=== PATIENT | female | born 1995 | race Caucasian/White ===

== ENCOUNTER 2019-12-14 02:25 | Emergency (ER) | payer OTHER ==
[2019-12-14 03:18] VITALS: BMI 25.4
[2019-12-14] MEDS ORDERED: SODIUM CHLORIDE 1,000 ML IV STA (04:02)
[2019-12-14] MEDS ORDERED: ACETAMINOPHEN 1000 MG/100 ML VIAL (NON FORMULARY) IVPB ONE (04:02)
[2019-12-14] MEDS ORDERED: ONDANSETRON 4 MG/2 ML VIAL IVPUSH ONE (04:02)
--- NOTE | 2019-12-14 04:02 | PDOC ---
*Physical Exam - Vital Signs Last Vital Signs Temp Pulse Resp BP Pulse Ox 98.2 F 100 H 19 136/50 L 97 12/14/19 02:25 12/14/19 02:25 12/14/19 02:25 12/14/19 02:25 12/14/19 02:25 ED Treatment Course - LABORATORY CBC & Chemistry Diagram: 12/14/19 05:00 12/14/19 05:00 Medical Decision Making - Medical Decision Making 12/14/19 04:02 Patient seen by the advanced practice provider under my direct supervision. Ancillary testing reviewed as necessary. I agree with plan as outlined by the advanced practice provider. Discharge - Discharge Information Problems reviewed: Yes Clinical Impression/Diagnosis: Abdominal pain Qualifiers: Abdominal location: left lower quadrant Qualified Code(s): R10.32 - Left lower quadrant pain Nausea and vomiting Qualifiers: Vomiting type: unspecified Vomiting Intractability: non-intractable Qualified Code(s): R11.2 - Nausea with vomiting, unspecified Condition: Improved Disposition: HOME - Additional Discharge Information Prescriptions: Famotidine [Pepcid -] 20 mg PO BID 4 Days #8 tablet Ketorolac Tromethamine [Toradol] 10 mg PO Q8H PRN #20 tablet PRN Reason: pain Ondansetron [Zofran *Odt*] 4 mg SL Q8H PRN #12 od.tablet PRN Reason: nausea - Follow up/Referral Referrals: Mich Turner MD [Staff Physician] - - Patient Discharge Instructions Patient Printed Discharge Instructions: DI for Ovarian Cyst Additional Instructions: Your blood work is normal. Your CAT scan is normal as well and only shows some trace fluid in the pelvis which could be indication of ruptured ovarian cyst which could cause pain. Take prescribed medication as prescribed for pain. 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 Follow-up with referred GI doctor Dr. Turner if abdominal pain persist for more than 2 days - Post Discharge Activity
--- NOTE | 2019-12-14 04:02 | PDOC ---
History of Present Illness - General Chief Complaint: Pain Stated Complaint: STOMACH PAIN Time Seen by Provider: 12/14/19 03:50 History Source: Patient, Old Records Exam Limitations: No Limitations - History of Present Illness Travel History: No Initial Comments: 12/14/19 04:29 HISTORY OF PRESENT ILLNESS: 24-year-old woman who presents emergency department for evaluation of abdominal pain starting today. Patient reports the pain started periumbilical it is now radiated to the left lower quadrant. Patient reports inability to tolerate p.o.'s she denies vaginal bleeding, vaginal discharge, hematuria, dysuria. She denies diarrhea or rectal bleeding. Her last bowel movement was 2 days ago. Patient states her son has been experiencing flulike symptoms for the past 3 to 4 days. No recent travel or sick contacts. PAST MEDICAL HISTORY: Denies past medical history SURGICAL HISTORY: Denies ALLERGIES: No known drug allergies REVIEW OF SYSTEMS General/Constitutional: Denies fever or chills. Denies weakness, weight change. HEENT: Denies change in vision. Denies ear pain or discharge. Denies sore throat. Cardiovascular: Denies chest pain or shortness of breath. Respiratory: Denies cough, wheezing, or hemoptysis. Gastrointestinal: See HPI Genitourinary: Denies dysuria, frequency, or change in urination. Musculoskeletal: Denies joint or muscle swelling or pain. Denies neck or back pain. Skin and breasts: Denies rash or easy bruising. Neurologic: Denies headache, vertigo, loss of consciousness, or loss of sensation. Psychiatric: Denies depression or anxiety. Endocrine: Denies increased thirst. Denies abnormal weight change. Hematologic/Lymphatic: Denies anemia, easy bleeding, or history of blood clots. Allergic/Immunologic: Denies hives or skin allergy. Denies latex allergy. PHYSICAL EXAM General Appearance: Well-appearing, appropriately dressed. No apparent distress , no intoxication. Respiratory/Chest: Lungs CTAB. No shortness of breath, chest tenderness, respiratory distress, accessory muscle use. No crackles, rales, rhonchi, stridor , wheezing, dullness Cardiovascular: RRR. S1, S2. No JVD, murmur, bradycardia, tachycardia. Vascular Pulses: Dorsalis-Pedis (R): 2+, Dorsalis-Pedis (L): 2+ Gastrointestinal/Abdominal: Normal bowel sounds. Abdomen soft, non-distended. Left lower quadrant tenderness with guarding. No rebound tenderness. No organomegaly, pulsatile mass, hernia, hepatomegaly, splenomegaly. Negative psoas, obturator or Rovsing signs. Lymphatic: No adenopathy, tenderness. Musculoskeletal/Extremities: Normal inspection. FROM of all extremities, normal capillary refill. Pelvis Stable. No CVA tenderness. No tenderness to extremities, pedal edema, swelling, erythema or deformity. Past History - Past Medical History Allergies/Adverse Reactions: Allergies Allergy/AdvReac Type Severity Reaction Status Date / Time No Known Allergies Allergy Verified 12/14/19 03:17 Home Medications: Ambulatory Orders Vit No.124/Iron/Folic [ Vitamin Tablet] 1 each PO DAILY Vitamins (Sjr) - 1 tab PO DAILY #90 tablet 08/09/16 Cephalexin [Keflex] 500 mg PO TID #15 capsule 08/12/16 Famotidine [Pepcid -] 20 mg PO BID 4 Days #8 tablet 12/14/19 Ketorolac Tromethamine [Toradol] 10 mg PO Q8H PRN #20 tablet 12/14/19 Ondansetron [Zofran *Odt*] 4 mg SL Q8H PRN #12 od.tablet 12/14/19 Anemia: No Asthma: No Cancer: No Cardiac Disorders: No CVA: No Diabetes: No HTN: No Seizures: No Thyroid Disease: No - Surgical History Abdominal Surgery: No Appendectomy: No Cardiac Surgery: No Cholecystectomy: No - Reproductive History (#): 1 Para: 0 Cervical CA: No Dysfunctional Uterine Bleeding: No Ectopic : No Endometrial CA: No Polycystic Ovaries: No Therapeutic (s) & number: No Tubal Ligation: No - Immunization History Immunization Up to Date: Yes - Psycho Social/Smoking Cessation Hx Smoking Status: No Smoking History: Never smoked Have you smoked in the past 12 months: No Number of Cigarettes Smoked Daily: 0 Hx Alcohol Use: No Drug/Substance Use Hx: No Substance Use Type: None Hx Substance Use Treatment: No *Physical Exam - Vital Signs Last Vital Signs Temp Pulse Resp BP Pulse Ox 98.2 F 100 H 19 136/50 L 97 12/14/19 02:25 12/14/19 02:25 12/14/19 02:25 12/14/19 02:25 12/14/19 02:25 ED Treatment Course - LABORATORY CBC & Chemistry Diagram: 12/14/19 05:00 12/14/19 05:00 Medical Decision Making - Medical Decision Making 12/14/19 04:32 A/P: 24-year-old woman with left lower quadrant abdominal pain starting today Differential diagnosis includes but is not limited to obstruction, perforation, diverticulitis, urinary tract infection, appendicitis, influenza, gastroenteritis Labs including lipase Urinalysis, urine culture, urine Normal saline 1 L IV bolus Zofran [address] of the abdomen and pelvis with IV contrast Reassess 12/14/19 07:05 Patient signed out to REINA Parker for continued evaluation. Discharge - Discharge Information Problems reviewed: Yes Clinical Impression/Diagnosis: Abdominal pain Qualifiers: Abdominal location: left lower quadrant Qualified Code(s): R10.32 - Left lower quadrant pain Nausea and vomiting Qualifiers: Vomiting type: unspecified Vomiting Intractability: non-intractable Qualified Code(s): R11.2 - Nausea with vomiting, unspecified Condition: Improved Disposition: HOME - Additional Discharge Information Prescriptions: Famotidine [Pepcid -] 20 mg PO BID 4 Days #8 tablet Ketorolac Tromethamine [Toradol] 10 mg PO Q8H PRN #20 tablet PRN Reason: pain Ondansetron [Zofran *Odt*] 4 mg SL Q8H PRN #12 od.tablet PRN Reason: nausea - Follow up/Referral Referrals: Mich Turner MD [Staff Physician] - - Patient Discharge Instructions Patient Printed Discharge Instructions: DI for Ovarian Cyst Additional Instructions: Your blood work is normal. Your CAT scan is normal as well and only shows some trace fluid in the pelvis which could be indication of ruptured ovarian cyst which could cause pain. Take prescribed medication as prescribed for pain. 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 Follow-up with referred GI doctor Dr. Turner if abdominal pain persist for more than 2 days - Post Discharge Activity
[2019-12-14] MEDS ORDERED: ONDANSETRON 4 MG/2 ML VIAL ONE (04:45)
[2019-12-14] MEDS ORDERED: ACETAMINOPHEN INJECTION 100 ML IVPB ONE (04:45)
[2019-12-14 05:40] LABS: BASO % 0.5 % (0-2.0); EOS % 1.4 % (0-4.5); HEMATOCRIT 39.2 % (32.4-45.2); HEMOGLOBIN 13.3 GM/dL (10.7-15.3); LYMPH % 21.1 % (8-40); MCH 29.4 pg (25.7-33.7); MEAN CELL VOLUME 86.5 fl (80-96); MEAN PLT VOLUME 8.8 fl (7.5-11.1); MONO % 6.9 % (3.8-10.2); NEUT % 70.1 % (42.8-82.8); PLATELET COUNT 344 K/MM3 (134-434); RBC 4.54 M/mm3 (3.60-5.2); RDW 12.7 % (11.6-15.6); WHITE BLOOD COUNT 14.1 K/mm3 (4.0-10.0)
[2019-12-14 05:57] LABS: ALBUMIN 4.1 g/dl (3.4-5.0); BILIRUBIN,TOTAL 0.5 mg/dL (0.2-1); CALCIUM 9.3 mg/dL (8.5-10.1); CREATININE 0.9 mg/dL (0.55-1.3); POTASSIUM 4.4 mmol/L (3.5-5.1); TOT PROT 7.7 g/dl (6.4-8.2)
[2019-12-14 06:26] LABS: URINE APPEARANCE CLOUDY; URINE BILIRUBIN NEGATIVE (NEGATIVE); URINE COLOR YELLOW; URINE GLUCOSE (UA) NEGATIVE (NEGATIVE); URINE KETONE NEGATIVE (NEGATIVE); URINE LEUK ESTERASE NEGATIVE (NEGATIVE); URINE NITRITE NEGATIVE (NEGATIVE); URINE PROTEIN TRACE (NEGATIVE); URINE UROBILINOGEN 0.2 mg/dL (0.2-1.0)
[2019-12-14] MEDS ORDERED: morphine CARPU-JECT 2 MG/1 ML DISP.SYRIN IVPUSH ONE (06:43)
[2019-12-14] MEDS ORDERED: MORPHINE SULFATE 2 MG/ML VIAL ONE (07:13)
--- NOTE | 2019-12-14 07:47 | PDOC ---
*Physical Exam - Vital Signs Last Vital Signs Temp Pulse Resp BP Pulse Ox 98.1 F 88 19 105/41 L 100 12/14/19 03:50 12/14/19 03:50 12/14/19 03:50 12/14/19 03:50 12/14/19 03:50 - Physical Exam General Appearance: Yes: Nourished, Appropriately Dressed, Mild Distress HEENT: positive: MARYANNE, Normal ENT Inspection, Pharynx Normal Neck: positive: Supple Respiratory/Chest: positive: Lungs Clear, Normal Breath Sounds. negative: Respiratory Distress, Accessory Muscle Use Cardiovascular: positive: Regular Rhythm, Regular Rate Gastrointestinal/Abdominal: positive: Normal Bowel Sounds, Tender (mild tenderness to LLQ). negative: Guarding, Rebound Musculoskeletal: positive: Normal Inspection. negative: CVA Tenderness Extremity: positive: Normal Inspection Integumentary: positive: Normal Color Neurologic: positive: Fully Oriented, Alert, Normal Mood/Affect, Normal Response ED Treatment Course - LABORATORY CBC & Chemistry Diagram: 12/14/19 05:00 12/14/19 05:00 - ADDITIONAL ORDERS Additional order review: Laboratory Results 12/14/19 12/14/19 12/14/19 05:00 04:56 04:56 Sodium 139 Potassium 4.4 Chloride 108 H Carbon Dioxide 27 Anion Gap 4 L BUN 14.0 Creatinine 0.9 Est GFR (CKD-EPI)AfAm 104.45 Est GFR (CKD-EPI)NonAf 90.12 Random Glucose 90 Calcium 9.3 Total Bilirubin 0.5 AST 12 L ALT 22 Alkaline Phosphatase 97 Total Protein 7.7 Albumin 4.1 Lipase 80 Urine Color Yellow Urine Appearance Cloudy Urine pH 6.0 Ur Specific [place] 1.038 H Urine Protein Trace Urine Glucose (UA) Negative Urine Ketones Negative Urine Blood Negative Urine Nitrite Negative Urine Bilirubin Negative Urine Urobilinogen 0.2 Ur Leukocyte Esterase Negative Urine HCG, Qual Negative 12/14/19 05:00 RBC 4.54 MCV 86.5 MCHC 34.0 RDW 12.7 D MPV 8.8 Neutrophils % 70.1 Lymphocytes % 21.1 Monocytes % 6.9 Eosinophils % 1.4 Basophils % 0.5 D - Medications Given in the ED: ED Medications Discontinued Medications Generic Name Dose Route Start Last Admin Trade Name Freq PRN Reason Stop Dose Admin Acetaminophen 1,000 mg 12/14/19 04:02 12/14/19 05:03 Ofirmev Injection - IVPB 12/14/19 04:03 1,000 mg ONCE ONE Administration Sodium Chloride 1,000 mls @ 1,000 mls/hr 12/14/19 04:02 12/14/19 05:02 Normal Saline - IV 12/14/19 05:01 1,000 mls/hr ASDIR STA Administration Morphine Sulfate 2 mg 12/14/19 06:43 12/14/19 07:35 Morphine Injection - IVPUSH 12/14/19 06:44 2 mg ONCE ONE Administration Ondansetron HCl 4 mg 12/14/19 04:02 12/14/19 05:03 Zofran Injection IVPUSH 12/14/19 04:03 4 mg ONCE ONE Administration Medical Decision Making - Medical Decision Making 12/14/19 07:45 I assumed care of this 24-year-old presenting with periumbilical left lower quadrant abdominal pain with nausea and vomiting without diarrhea. Lab done from previous team shows mildly elevated WBC of 14. Chemistry lab within normal limits and UA within normal limits. Patient post Tylenol IV 1 g and started complaining again of pain and was given morphine by previous team. Patient pending abdominal CT reading 12/14/19 08:14 CT of abdominal pelvis read by imaging on-call shows trace fluid in pelvic region otherwise unremarkable CT. CT showed possible diarrheal illness without colonic wall thickening with no evidence of colitis. Patient symptoms likely caused by ruptured ovarian cyst. Adnexal structures normal and CT. Patient reports still feeling cramping pain after giving morphine an hour ago. Toradol 30 mg IV given for pain. Reassess after 20 minutes 12/14/19 09:12 Patient reported improvement in pain. Patient stable for discharge on p.o. 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 ENGINE MECHANIC SUPERVISOR follow-up as symptoms might be from ruptured ovarian cyst Discharge - Discharge Information Problems reviewed: Yes Clinical Impression/Diagnosis: Abdominal pain Qualifiers: Abdominal location: left lower quadrant Qualified Code(s): R10.32 - Left lower quadrant pain Nausea and vomiting Qualifiers: Vomiting type: unspecified Vomiting Intractability: non-intractable Qualified Code(s): R11.2 - Nausea with vomiting, unspecified Condition: Improved Disposition: HOME - Admission No - Additional Discharge Information Prescriptions: Famotidine [Pepcid -] 20 mg PO BID 4 Days #8 tablet Ketorolac Tromethamine [Toradol] 10 mg PO Q8H PRN #20 tablet PRN Reason: pain Ondansetron [Zofran *Odt*] 4 mg SL Q8H PRN #12 od.tablet PRN Reason: nausea - Follow up/Referral Referrals: Mich Turner MD [Staff Physician] - - Patient Discharge Instructions Patient Printed Discharge Instructions: DI for Ovarian Cyst Additional Instructions: Your blood work is normal. Your CAT scan is normal as well and only shows some trace fluid in the pelvis which could be indication of ruptured ovarian cyst which could cause pain. Take prescribed medication as prescribed for pain. 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 Follow-up with referred GI doctor Dr. Turner if abdominal pain persist for more than 2 days - Post Discharge Activity
[2019-12-14] MEDS ORDERED: KETOROLAC TROMETHAMINE 30 MG/1 ML VIAL IVPUSH ONE (08:00)
[2019-12-14] MEDS ORDERED: KETOROLAC TROMETHAMINE 30 MG/1 ML VIAL IM ONE (08:00)
[2019-12-14] MEDS ORDERED: KETOROLAC TROMETHAMINE 30 MG/1 ML VIAL ONE (08:01)
[2019-12-14 10:23] VITALS: BP 125/63; PULSE 74; TEMP 98
== END 2019-12-14 10:00 | disposition home or self-care (01) ==
LOC: JER 02:25
PROC: 3E033NZ Introduction of Analgesics, Hypnotics, Sedatives into Peripheral Vein, Percutaneous Approach (ICD-10-PCS; principal; 2019-12-14)
PROC: 3E0333Z Introduction of Anti-inflammatory into Peripheral Vein, Percutaneous Approach (ICD-10-PCS; 2019-12-14)
DX: R10.32 Left lower quadrant pain (principal); R11.2 Nausea with vomiting, unspecified
CPT/HCPCS: 36415; 74177-TC; 80053; 81003; 83690; 84703; 85025; 87086; 87804; 96374; 96375; 99283-25; J0131; J7030

== ENCOUNTER 2020-10-12 09:00 | Emergency (ER) | payer OTHER ==
[2020-10-12 09:11] VITALS: BMI 24.4
[2020-10-12 09:12] VITALS: TEMP 98.1
[2020-10-12] MEDS ORDERED: SODIUM CHLORIDE 1,000 ML IV STA ×2 (10:58→14:45)
[2020-10-12] MEDS ORDERED: ONDANSETRON 4 MG/2 ML VIAL IVPUSH ONE (10:58)
[2020-10-12 11:21] LABS: BASO % 0.9 % (0-2.0); EOS % 3.5 % (0-4.5); HEMATOCRIT 37.4 % (32.4-45.2); HEMOGLOBIN 12.4 GM/dL (10.7-15.3); LYMPH % 29.1 % (8-40); MCH 29.4 pg (25.7-33.7); MCHC 33.2 g/dl (32.0-36.0); MEAN CELL VOLUME 88.6 fl (80-96); NEUT % 60.5 % (42.8-82.8); PLATELET COUNT 301 K/MM3 (134-434); RBC 4.22 M/mm3 (3.60-5.2); RDW 12.8 % (11.6-15.6); WHITE BLOOD COUNT 10.2 K/mm3 (4.0-10.0)
[2020-10-12 11:23] LABS: EPI CELLS 22 /uL (0-25.1); HYALINE CASTS 1 /uL (0-3.1); URINE APPEARANCE CLOUDY; URINE BACTERIA 110 /uL (0-1359); URINE BILIRUBIN NEGATIVE (NEGATIVE); URINE COLOR ORANGE; URINE GLUCOSE (UA) NEGATIVE (NEGATIVE); URINE KETONE NEGATIVE (NEGATIVE); URINE LEUK ESTERASE NEGATIVE (NEGATIVE); URINE NITRITE NEGATIVE (NEGATIVE); URINE PROTEIN TRACE (NEGATIVE); URINE RBC 5449 /uL (0-23.9); URINE UROBILINOGEN 0.2 mg/dL (0.2-1.0); URINE WBC 39 /uL (0-25.8)
[2020-10-12 11:30] LABS: INR 0.97 (0.83-1.09); PROTHROMBIN TIME (PATIENT) 11.8 SEC (9.7-13.0)
[2020-10-12 11:33] LABS: ACTIVATED PTT 29.4 SECONDS (25.2-36.5)
[2020-10-12] MEDS ORDERED: morphine CARPU-JECT 2 MG/1 ML DISP.SYRIN IVPUSH ONE (14:45)
[2020-10-12] MEDS ORDERED: MORPHINE SULFATE 2 MG/ML VIAL ONE (15:35)
[2020-10-12] MEDS ORDERED: METOCLOPRAMIDE HCL INJECTION 10 MG/2 ML VIAL IVPUSH ONE (17:06)
[2020-10-12] MEDS ORDERED: METOCLOPRAMIDE HCL INJECTION 10 MG/2 ML VIAL ONE (17:16)
[2020-10-12 18:43] VITALS: BP 113/69; PULSE 75
== END 2020-10-12 18:49 | disposition home or self-care (01) ==
LOC: JER 09:00
PROC: 3E033GC Introduction of Other Therapeutic Substance into Peripheral Vein, Percutaneous Approach (ICD-10-PCS; principal; 2020-10-12)
PROC: 3E033NZ Introduction of Analgesics, Hypnotics, Sedatives into Peripheral Vein, Percutaneous Approach (ICD-10-PCS; 2020-10-12)
PROC: 3E033GC Introduction of Other Therapeutic Substance into Peripheral Vein, Percutaneous Approach (ICD-10-PCS; 2020-10-12)
PROC: 3E0337Z Introduction of Electrolytic and Water Balance Substance into Peripheral Vein, Percutaneous Approach (ICD-10-PCS; 2020-10-12)
PROC: 3E0337Z Introduction of Electrolytic and Water Balance Substance into Peripheral Vein, Percutaneous Approach (ICD-10-PCS; 2020-10-12)
DX: N93.9 Abnormal uterine and vaginal bleeding, unspecified (principal)
CPT/HCPCS: 36415; 76830-TC; 81003; 84702; 85025; 85610; 85730; 86850; 86900; 86901; 87086; 87491; 87591; 99284-25